=== PATIENT | male | born 1965 | race African-American/Black ===

== ENCOUNTER → 2020-08-28 12:46 | Outpatient (BNVA) | payer OTHER, SELFPAY | PROVIDERS: PCP Internal Medicine; Referring Provider Internal Medicine; Visit Provider Urology | DX: C61 Malignant neoplasm of prostate (principal); R68.82 Decreased libido; N52.9 Male erectile dysfunction, unspecified | CPT/HCPCS: 99213; 99214 ==

== ENCOUNTER 2020-09-18 06:50 | Day surgery (SDC) | payer OTHER, SELFPAY ==
--- NOTE | 2020-09-17 11:59 | HO.ANESPROP2 ---
Documented by User: Tara Robert 09/17/20 12:04 HPI - Anesthesia Eval Consult details Narrative: 54yo M for Colonoscopy PMFSH Past Medical History Medical History (Updated 09/18/20 @ 08:16 by Cassie Leal) Abnormal liver function Anemia History of prostate cancer Hx of hydrocele Hx of testicular mass Increased BMI (body mass index) Surgical History Surgical History History of carpal tunnel surgery of right wrist Hx of colonoscopy Hx of shoulder surgery Social History Social History Smoking Status: Never smoker Second Hand Smoke Exposure: No Use of substances other than those prescribed or required for medical reasons: No Advance Directives: No Advance Directives Information Provided: No Recently lost weight without trying: No Meds Allergies Allergy/AdvReac Type Severity Reaction Status Date / Time Sulfa (Sulfonamide Allergy Unknown swollen Verified 05/13/20 00:00 Antibiotics) testicle sulfamethoxazole Allergy Unknown SWELLING Unverified 08/14/20 15:31 [From BACTRIM] trimethoprim [From BACTRIM] Allergy Unknown SWELLING Unverified 08/14/20 15:31 Home Medications Medication Instructions Recorded Confirmed Type amitriptyline 1 tab PO BEDTIME 09/16/20 09/16/20 History atorvastatin 1 tab PO DAILY 09/16/20 09/16/20 History benzonatate 1 cap PO TID PRN 09/16/20 09/16/20 History bisacodyl 4 tab PO DAILY PRN 09/16/20 History cholecalciferol (vitamin D3) 1 tab PO BID 09/16/20 09/16/20 History [Vitamin D3] duloxetine mg PO 09/16/20 History meclizine 1 tab PO Q8H PRN 09/16/20 09/16/20 History pregabalin PO 09/16/20 History sertraline 1 tab PO DAILY 09/16/20 09/16/20 History tamsulosin 1 cap PO DAILY 09/16/20 09/16/20 History Exam Exam Date and Time: September 17, 2020 1159 Pertinent Lab Results Pertinent Lab Results: Laboratory Tests 08/09/20 08/09/20 20:04 20:04 WBC 4.1 L Hgb 11.6 L Hct 35.5 L Plt Count 178 Sodium 139 Potassium 4.0 Chloride 105 BUN 18 H Creatinine 1.18 Narrative Narrative: CTA 2017: Nml Coronaries, nml EF ECHO 2017: Nml study Assessment and Plan Assessment Anesthesia Assessment: Chart Reviewed Documented by User: Cassie Leal 09/18/20 08:29 PMFSH Past Medical History Medical History (Updated 09/18/20 @ 08:16 by Cassie Leal) Abnormal liver function Anemia History of prostate cancer Hx of hydrocele Hx of testicular mass Increased BMI (body mass index) Family History Family history of problems with anesthesia: No Surgical History Surgical History History of carpal tunnel surgery of right wrist Hx of colonoscopy Hx of shoulder surgery History of Problems with Anesthesia: No Social History Social History Smoking Status: Never smoker Second Hand Smoke Exposure: No Use of substances other than those prescribed or required for medical reasons: No Advance Directives: No Advance Directives Information Provided: No Recently lost weight without trying: No Meds Allergies Allergy/AdvReac Type Severity Reaction Status Date / Time Sulfa (Sulfonamide Allergy Unknown swollen Verified 05/13/20 00:00 Antibiotics) testicle sulfamethoxazole Allergy Unknown SWELLING Unverified 08/14/20 15:31 [From BACTRIM] trimethoprim [From BACTRIM] Allergy Unknown SWELLING Unverified 08/14/20 15:31 Home Medications Medication Instructions Recorded Confirmed Type amitriptyline 1 tab PO BEDTIME 09/16/20 09/16/20 History atorvastatin 1 tab PO DAILY 09/16/20 09/16/20 History benzonatate 1 cap PO TID PRN 09/16/20 09/16/20 History bisacodyl 4 tab PO DAILY PRN 09/16/20 History cholecalciferol (vitamin D3) 1 tab PO BID 09/16/20 09/16/20 History [Vitamin D3] duloxetine mg PO 09/16/20 History meclizine 1 tab PO Q8H PRN 09/16/20 09/16/20 History pregabalin PO 09/16/20 History sertraline 1 tab PO DAILY 09/16/20 09/16/20 History tamsulosin 1 cap PO DAILY 09/16/20 09/16/20 History Exam Height,Weight and Vital Signs: Vital Signs Temp Pulse Resp BP Pulse Ox 09/18/20 07:33 96.2 F L 52 16 128/72 98 Airway Mallampati Class: II TM Dist: >3cm Neck ROM: Full Heart: RRR ?systolic murmur Lungs: CTAB Assessment and Plan Assessment Anesthesia Assessment: Anesthesia Plan Discussed and Chart Reviewed Final Anesthetic Review NPO: Yes ASA Class: II Final Preanesthetic Review: No Changes in Pt Med Stat, Meds/Allgs Chart Reviewed, Consent Obtained/Reviewed and Anes Risks/Benef Reviewed Patient Risk: Low Procedure Risk: Low Anesthetic Plan Anesthetic Plan: MAC: Disposition: Standard PACU
[2020-09-18 07:18] VITALS: BMI 33.2
[2020-09-18 07:33] VITALS: BP 128/72; PULSE 52; RESP 16; TEMP 35.7; O2SAT 98
[2020-09-18] MEDS: Lactated Ringers 1,000 ML 100 ML IVCONT (07:47)
--- NOTE | 2020-09-18 08:22 | MHC.SHP ---
Pre-Procedural Eval Section B Chief Complaint: Polyp of Colon Relevant Family History (Specify if Yes): No Relevant Social History: None Present Medications: see Short Stay Collaborative assessment Medical History: Significant History (BPH, gilbert syndrome) History of Previous Operations: Relevant previous surgery/procedure and date(s) (prostate surgery) Allergies: Allergies Allergy/AdvReac Type Severity Reaction Status Date / Time Sulfa (Sulfonamide Allergy Unknown swollen Verified 05/13/20 00:00 Antibiotics) testicle sulfamethoxazole Allergy Unknown SWELLING Unverified 08/14/20 15:31 [From BACTRIM] trimethoprim [From BACTRIM] Allergy Unknown SWELLING Unverified 08/14/20 15:31 Review of Systems Sugical H&P ROS: Negative: Constitution, Cardiovascular, Respiratory, Neurological, Psychiatric, Hem-Onc, Allergic/Immunologic, Gastrointestinal, Genitourinary, Musculoskeletal, Integumentary, Endocrine and Eyes/Ears/Nose/Throat Exam Surgical H&P Exam: Normal: HEENT, Normal: Heart, Normal: Lungs, Normal: Extremities, Normal: Abdomen, Normal: Skin and Normal: Neurological Plan Diagnosis/Plan: Unchanged Patient has been examined and remains a candidate for the planned procedure
--- NOTE | 2020-09-18 08:23 | PM.OP ---
Brief Operative Note Date of procedure: 09/18/20 Pre-op diagnosis: hx of colon polyps Post-op diagnosis: same Procedure: colonoscopy-see op note Surgeon: Je Gates MD Anesthesia: MAC Estimated blood loss (mL): 0 Condition: stable Disposition: PACU
--- NOTE | 2020-09-18 08:23 | W.PM.OPN ---
Operative Note Operative Note Narrative: Operative Information Procedure Description: Colonoscopy COLONOSCOPY Instrument: Olympus variable stiffness pediatric scope 190L Colonoscopy Monitoring: Vital signs and clinical assessment, continuous EKG monitoring, Pulse oximetry, Carbon Dioxide monitoring and blood pressure monitoring were done throughout the procedure. Colon withdrawal time was 13 minutes. Procedure: The patient was placed in the left lateral decubitis position and pre-procedure medications were administered. After a digital rectal examination of the ano-rectum, the video colonoscope was inserted into the rectum and advanced through the colon to the cecum/TI. The colonoscope was slowly withdrawn in a retrograde panoramic fashion and the colon mucosa was carefully examined including a retroflexed view of the rectum. Findings and interventions are described below. Procedure Difficulty:easy Findings: Terminal Ileum-normal Cecum:normal Ascending Colon: normal Transverse Colon -normal Descending Colon:normal Sigmoid Colon: x 2 sesssile polyps measuring 8-10 mm removed with cold snare and retrieved Rectum: Retroflexion with small internal hemorrhoids, grade I Anorectum - normal Colon preparation: [place] Bowel Preparation Scale Right colon; 3 Transverse colon: 3 Left colon; 1 (0 = Unprepared colon segment with mucosa not seen due to solid stool that cannot be cleared. 1 = Portion of mucosa of the colon segment seen, but other areas of the colon segment not well seen due to staining, residual stool and/or opaque liquid. 2 = Minor amount of residual staining, small fragments of stool and/or opaque liquid, but mucosa of colon segment seen well. 3 = Entire mucosa of colon segment seen well with no residual staining, small fragments of stool or opaque liquid) Impression and Post Procedure Diagnosis: colon polyps internal hemorrhoids Plan: High fiber diet leaflet Avoid straining at stool, epsom salts and sitz bath prn, anusol supps or cream prn Repeat Colonoscopy in 5 years or earlier if clincially indicated Above findings were reviewed with the patient and relevant handouts were provided if indicated.
--- NOTE | 2020-09-18 08:28 | P.CONAN_ITS ---
[facility] Past Medical History Medical History (Updated 09/18/20 @ 08:16 by Cassie Leal) Abnormal liver function Anemia History of prostate cancer Hx of hydrocele Hx of testicular mass Increased BMI (body mass index) Surgical History Surgical History History of carpal tunnel surgery of right wrist Hx of colonoscopy Hx of shoulder surgery Social History Social History Smoking Status: Never smoker Second Hand Smoke Exposure: No Use of substances other than those prescribed or required for medical reasons: No Advance Directives: No Advance Directives Information Provided: No Recently lost weight without trying: No Meds Allergies Allergy/AdvReac Type Severity Reaction Status Date / Time Sulfa (Sulfonamide Allergy Unknown swollen Verified 05/13/20 00:00 Antibiotics) testicle sulfamethoxazole Allergy Unknown SWELLING Unverified 08/14/20 15:31 [From BACTRIM] trimethoprim [From BACTRIM] Allergy Unknown SWELLING Unverified 08/14/20 15:31 Home Medications Medication Instructions Recorded Confirmed Type amitriptyline 1 tab PO BEDTIME 09/16/20 09/16/20 History atorvastatin 1 tab PO DAILY 09/16/20 09/16/20 History benzonatate 1 cap PO TID PRN 09/16/20 09/16/20 History bisacodyl 4 tab PO DAILY PRN 09/16/20 History cholecalciferol (vitamin D3) 1 tab PO BID 09/16/20 09/16/20 History [Vitamin D3] duloxetine mg PO 09/16/20 History meclizine 1 tab PO Q8H PRN 09/16/20 09/16/20 History pregabalin PO 09/16/20 History sertraline 1 tab PO DAILY 09/16/20 09/16/20 History tamsulosin 1 cap PO DAILY 09/16/20 09/16/20 History Exam Exam Date and Time: September 18, 2020 0828 Height,Weight and Vital Signs: Height 5 ft 9 in Weight 102.058 kg Last Vital Signs Temp 96.2 F L 09/18/20 07:33 Pulse 52 09/18/20 07:33 Resp 16 09/18/20 07:33 BP 128/72 09/18/20 07:33 Pulse Ox 98 09/18/20 07:33 Assessment and Plan Final Anesthetic Review Final Preanesthetic Review: No Changes in Pt Med Stat, Meds/Allgs Chart Reviewed, Consent Obtained/Reviewed and Anes Risks/Benef Reviewed Patient Risk: Low Procedure Risk: Intermediate Anesthetic Plan Anesthetic Plan: MAC: Disposition: Standard PACU
[2020-09-18 09:08] VITALS: BP 110/49; PULSE 60; RESP 16; TEMP 37.6; O2SAT 96
[2020-09-18 09:24] VITALS: BP 117/67; PULSE 56; RESP 16; TEMP 36.6; O2SAT 95
--- NOTE | 2020-09-18 10:17 | PC.NURSE ---
[facility] [id number] used for interpretation
== END 2020-09-18 10:17 | disposition home or self-care (01) ==
PROVIDERS: Internal Medicine Gastroenterology; Visit Provider Anesthesiology
PROC: 0DJD8ZZ Inspection of Lower Intestinal Tract, Via Natural or Artificial Opening Endoscopic (ICD-10-PCS; CPT 45378; principal; 2020-09-18 08:10)
DX: Z12.11 Encounter for screening for malignant neoplasm of colon (principal); D12.5 Benign neoplasm of sigmoid colon; K64.8 Other hemorrhoids; K64.0 First degree hemorrhoids; D64.9 Anemia, unspecified; E80.4 Gilbert syndrome; Z79.899 Other long term (current) drug therapy; Z85.46 Personal history of malignant neoplasm of prostate; Z88.2 Allergy status to sulfonamides
CPT/HCPCS: 45385; 88305

== ENCOUNTER → 2020-09-29 09:01 | Outpatient (BNVA) | payer OTHER, SELFPAY | PROVIDERS: PCP Internal Medicine; Referring Provider Internal Medicine; Visit Provider Physician Assistant | DX: K64.8 Other hemorrhoids (principal); D12.5 Benign neoplasm of sigmoid colon; Z98.890 Other specified postprocedural states | CPT/HCPCS: 99212 ==

== ENCOUNTER 2020-10-08 17:10 | Outpatient (REF) | payer OTHER, SELFPAY | END 2020-10-08 17:11 | disposition home or self-care (01) | LOC: HO.LAB 17:10 | PROVIDERS: Visit Provider Internal Medicine | DX: Z20.828 Contact with and (suspected) exposure to other viral communicable diseases (principal) | CPT/HCPCS: C9803; U0003 ==

== ENCOUNTER 2020-11-24 11:09 | Outpatient (REF) | payer OTHER, SELFPAY ==
[2020-11-24 12:47] LABS: Prostate Specific Antigen < 0.05 ng/mL (<0.05-4.0)
== END 2020-11-24 11:10 | disposition home or self-care (01) ==
LOC: HO.LAB 11:09
PROVIDERS: Visit Provider Urology
DX: C61 Malignant neoplasm of prostate (principal)
CPT/HCPCS: 84153

== ENCOUNTER → 2020-12-01 13:04 | Outpatient (BNVA) | payer OTHER, SELFPAY | PROVIDERS: Visit Provider Urology | DX: C61 Malignant neoplasm of prostate (principal) | CPT/HCPCS: 51798; 81002; 99212 ==

== ENCOUNTER → 2021-02-19 13:29 | Outpatient (BNVA) | payer OTHER, SELFPAY | PROVIDERS: Visit Provider Urology | DX: C61 Malignant neoplasm of prostate (principal); N40.1 Benign prostatic hyperplasia with lower urinary tract symptoms; N13.8 Other obstructive and reflux uropathy | CPT/HCPCS: 96402; 99212; J9217 ==

== ENCOUNTER 2025-09-11 15:06 | Emergency (ER) | payer OTHER, SELFPAY ==
--- NOTE | ~2025-09-11 | XR_ITS ---
EXAMINATION: XR CHEST CLINICAL INFORMATION: chest congestion productive cough COMPARISON: Previous chest x-ray July 2020 TECHNIQUE: 2 views of the chest were obtained. FINDINGS: Increased markings in the left upper lung/perihilar region. Question 1 cm nodular density overlying the left anterior fourth rib and posterior seventh rib versus summation of bony and vascular structures. Lungs are otherwise clear. Cardiac and mediastinal contours are stable. No pleural effusion or pneumothorax. Degenerative changes of the spine. XR/XR chest 2V IMPRESSION: Question small infiltrate in the left perihilar region and 1 cm nodular density versus summation of bone and vascular structures. Recommend follow-up chest x-ray following treatment. Electronically signed by: Andreina Sandoval MD 09/11/2025 04:17 PM EDT
[2025-09-11 15:12] VITALS: BP 127/70; PULSE 64; RESP 20; TEMP 36.8; O2SAT 100; BMI 37.0
--- NOTE | 2025-09-11 15:16 | ECG_ITS ---
Test Reason : chest discomfort Blood Pressure : */* mmHG Vent. Rate : 59 BPM Atrial Rate : 59 BPM P-R Int : 192 ms QRS Dur : 78 ms QT Int : 404 ms P-R-T Axes : 16 -21 -4 degrees QTcB Int : 399 ms Sinus bradycardia Minimal voltage criteria for LVH, may be normal variant ( R in aVL ) Nonspecific ST abnormality Abnormal ECG When compared with ECG of 10-Sep-2017 20:10, No significant change was found Referred By: Krystina Berumen Electronically Signed By: Paulino Angel
--- NOTE | 2025-09-11 15:17 | ED.URI ---
HPI - URI/Sore Throat General Chief Complaint: Upper Respiratory Symptoms Stated Complaint: chest congestion Time Seen by Provider: 09/11/25 21:04 Source: patient and bottom wheeler Mode of arrival: ambulatory Limitations: language barrier History of Present Illness ED Provider: HPI Narrative: 59-year-old male presenting with productive cough and chest congestion, he is visiting from a [place] reports that his has had similar symptoms, symptoms started proximally for 5 days ago, no chest pain no pleurisy no hemoptysis. Related Data Home Medications ?Medication ?Instructions ?Recorded ?Confirmed amitriptyline 50 mg tablet 1 tab PO BEDTIME 09/16/20 12/01/20 atorvastatin 20 mg tablet 1 tab PO DAILY 09/16/20 12/01/20 benzonatate 200 mg capsule 1 cap PO TID PRN cough 09/16/20 12/01/20 cholecalciferol (vitamin D3) 10 1 tab PO BID 09/16/20 12/01/20 mcg (400 unit) tablet (Vitamin D3) duloxetine 60 mg capsule,delayed mg PO 09/16/20 12/01/20 release meclizine 25 mg tablet 1 tab PO Q8H PRN dizziness 09/16/20 12/01/20 pregabalin 300 mg capsule PO 09/16/20 12/01/20 sertraline 100 mg tablet 1 tab PO DAILY 09/16/20 12/01/20 Previous Rx's ?Medication ?Instructions ?Recorded leuprolide acetate (6 month) 45 mg 45 mg subcut [id number] #1 ea 08/28/20 (6 month) subcutaneous syringe ([employer]) hydrocortisone 2.5 % topical cream 1 applic MD BEDTIME PRN 09/29/20 with perineal applicator hemorrhoids #30 grams (Anusol-HC) hydrocortisone 2.5 % topical cream 1 applic MD BID PRN hemorrhoids 09/29/20 with perineal applicator #30 grams (Proctozone-HC) tamsulosin 0.4 mg capsule 0.4 mg PO DAILY #30 caps 01/13/21 benzonatate 200 mg capsule 200 mg PO TID PRN cough #14 caps 09/11/25 doxycycline monohydrate 100 mg 100 mg PO BID 7 days #14 caps 09/11/25 capsule Allergies Allergy/AdvReac Type Severity Reaction Status Date / Time Sulfa (Sulfonamide Allergy Unknown swollen Verified 09/11/25 15:15 Antibiotics) testicle sulfamethoxazole (From Allergy Unknown SWELLING Verified 09/11/25 15:15 BACTRIM) trimethoprim (From BACTRIM) Allergy Unknown SWELLING Verified 09/11/25 15:15 Review of Systems Constitutional: Constitutional: Reports as per HPI [facility] Past Medical History Medical History Abnormal liver function Anemia BPH (benign prostatic hyperplasia) History of nocturia History of prostate cancer Hx of hydrocele Hx of testicular mass Increased BMI (body mass index) Surgical History History of carpal tunnel surgery of right wrist Hx of colonoscopy Hx of shoulder surgery Family History Family History Father History of heart attack Mother Alive and well Social History Social History Alcohol intake: never Second Hand Smoke Exposure: No Advance Directives: No Advance Directives Information Provided: No Physical Exam Vital Signs: Vital Signs: Last Vital Signs Temp 98.2 F 09/11/25 15:12 Pulse 64 09/11/25 15:12 Resp 20 09/11/25 15:12 BP 127/70 09/11/25 15:12 Pulse Ox 100 09/11/25 15:12 O2 Del Method Room Air 09/11/25 15:12 BMI result Body Mass Index 37.0 Const: Other: General: ?Appears of stated age ? ?CV: RRR, no obvious murmurs appreciated ? ?Resp: ?No wheezing rales rhonchi no stridor moving air well ? ?MSK: FROM, strength 5/5 all extremities ? Skin: Warm, dry, intact, ? ?Neuro: ?Alert and oriented x3, moving upper and lower extremities symmetrically, no obvious facial asymmetry noted, cranial nerves 2-12 intact Course Course Course Narrative: This is a Rapid Medical Examination (RME) performed by Millie Berumen PA-C in triage. Full HPI, ROS, assessment and treatment plan per primary provider in the Main ED. Hx: 59 yo M here for eval of chest congestion/discomfort, productive cough x5 days. reports symptoms began after driving here from [place]. ill w/ similar symptoms. no hemoptysis. Plan: labs, ekg, cxr, viral swabs Medical Decision Making Medical Decision Making [facility] Narrative: 9:35 PM 09/11/2025 (Dr. Issac Arshad): Consideration for workup as below, his chest x-ray is consistent with pneumonia as well as his symptoms support that, he is not septic however, no leukocytosis, no tachycardia no hypoxia, did not feel further workup for PE is indicated based on his presentation and symptoms. We will initiate antibiotics, he is nonsmoker. Differential Diagnosis Differential Diagnoses: The differential diagnosis associated with the presentation includes (CHF, COPD exacerbation, pneumonia, pneumothorax, ACS, PE,) Admission/Observation Consideration of admission/observation: Escalation of care including admission/observation considered Lab Data [facility] Lab Attestation statement: I reviewed the patient's lab results. 09/11/25 15:27 09/11/25 15:27 Labs: Lab Results 09/11/25 09/11/25 Range/Units 15:27 15:28 WBC 5.6 (4.8-10.8) X10*3/uL RBC 4.58 L (4.60-5.80) X10*6/uL Hgb 12.0 L (14.0-18.0) g/dl Hct 36.8 L (42.0-52.0) % MCV 80.3 (80.0-98.0) fL MCH 26.2 L (27.0-33.0) pg MCHC 32.6 (31.0-36.0) g/dl RDW 14.0 (11.0-16.0) % Plt Count 150 L (160-400) X10*3/uL MPV 12.4 (9.4-12.4) fL Immature Gran % (Auto) 0.5 H (0.0-0.4) % Neut % (Auto) 58.2 (45-73) % Lymph % (Auto) 26.5 (20-40) % Tift % (Auto) 11.4 H (2-11) % Eos % (Auto) 3.0 (0-4) % Baso % (Auto) 0.4 (0-2) % Lymph # (Auto) 1.5 (1.2-4.9) X10*3/uL Tift # (Auto) 0.6 (0.1-1.2) X10*3/uL Eos # (Auto) 0.2 (0.0-0.4) X10*3/uL Baso # (Auto) 0.0 (0.0-0.2) X10*3/uL Abs Immat Gran (auto) 0.03 (0.00-0.03) X10*3/uL Absolute Neuts (auto) 3.3 (2.0-8.3) x10*3/uL Absolute Nucleated RBC 0.000 (0.0-0.012) X10*3/uL Nucleated RBC % (auto) 0.0 (0.0-0.2) /100WBC Sodium 143 (135-145) mmol/L Potassium 4.1 (3.3-5.1) mmol/L Chloride 111 H (96-108) mmol/L Carbon Dioxide 26 (22-29) mmol/L Anion Gap 10 L (12-20) BUN 13 (9-16) mg/dL Creatinine 1.03 (0.5-1.4) mg/dL Estim Creat Clear Calc 93.6 Estimated GFR > 60 Random Glucose 110 (60-115) mg/dL Calcium 9.0 (8.4-10.2) mg/dL Magnesium 1.9 (1.6-2.6) mg/dL Total Bilirubin 0.9 (0.0-1.0) mg/dL AST 32 (5-37) U/L ALT 35 (0-40) U/L Alkaline Phosphatase 100 (39-117) U/L Troponin I High Sens 7.7 (<3.5-35.0) ng/L Total Protein 6.8 (6.5-8.0) g/dL Albumin 4.0 (3.5-5.0) g/dL COVID-19 (JOSELITO) Negative (Negative) COVID-19 Clin Com See Note Influenza Type A (SEBASTIAN) Negative (Negative) Influenza Type B (SEBASTIAN) Negative (Negative) Influenza A & B Note See Note Independent Interpretation I performed an independent interpretation of an: EKG (59 beats per minute otherwise normal ECG without dysrhythmia, AV kp blocks or ST-T changes to suspect underlying ACS, my independent interpretation) and Plain X-Ray (I do not appreciate obvious consolidations, there was no evidence for vascular congestion, pneumothorax) Radiology Impression Discussion of test interpretation with radiology: I have reviewed the radiologist's reading. ( XR/XR chest 2V IMPRESSION: Question small infiltrate in the left perihilar region and 1 cm nodular density versus summation of bone and vascular structures. Recommend follow-up chest x-ray following treatment) Tests considered The following testing was considered but not selected: CT angiography of the chest Prescription Management I considered prescription management with: Antibiotic Discharge Plan Discharge Clinical Impression: Community acquired pneumonia Patient Disposition: Home, Self-Care Instructions: Community Acquired Pneumonia (ED) Additional Instructions: As discussed your chest x-ray is concerning for small infiltrate or pneumonia in the left lung, antibiotics started in the ER 1st dose, pickle sorter antibiotics and medication for cough at your pharmacy tomorrow, follow up with the PCP worsening issues concerns come back to the ER, the rest of the workup including viral swab, blood work EKG cardiac enzymes have been reassuring Prescriptions: New doxycycline monohydrate 100 mg capsule 100 mg PO BID 7 Days Qty: 14 0RF benzonatate 200 mg capsule 200 mg PO TID PRN (Reason: cough) Qty: 14 0RF No Action tamsulosin 0.4 mg capsule 0.4 mg PO DAILY Qty: 30 6RF atorvastatin 20 mg tablet 1 tab PO DAILY benzonatate 200 mg capsule 1 cap PO TID PRN (Reason: cough) sertraline 100 mg tablet 1 tab PO DAILY amitriptyline 50 mg tablet 1 tab PO BEDTIME meclizine 25 mg tablet 1 tab PO Q8H PRN (Reason: dizziness) cholecalciferol (vitamin D3) [Vitamin D3] 10 mcg (400 unit) tablet 1 tab PO BID duloxetine 60 mg capsule,delayed release(DR/EC) PO pregabalin 300 mg capsule PO Eligard (6 month) 45 mg syringe 45 mg subcut [id number] Qty: 1 0RF hydrocortisone [Proctozone-HC] 2.5 % cream with perineal applicator 1 applic MD BID PRN (Reason: hemorrhoids) Qty: 30 3RF Rx Instructions: apply MD BID prn hydrocortisone [Anusol-HC] 2.5 % cream with perineal applicator 1 applic MD BEDTIME PRN (Reason: hemorrhoids) Qty: 30 0RF Print Language: Bulgarian
[2025-09-11 15:33] LABS: MANUAL DIFF FLAG NO
[2025-09-11 15:34] LABS: Hematocrit 36.8 % (42.0-52.0); Hemoglobin 12.0 g/dl (14.0-18.0); Imm Gran Abs Auto 0.03 X10*3/uL (0.00-0.03); Imm Gran Pct Auto 0.5 % (0.0-0.4); Lymphocytes Absolute Auto 1.5 X10*3/uL (1.2-4.9); Mean Corpuscular HGB Conc 32.6 g/dl (31.0-36.0); Mean Corpuscular Hemoglobin 26.2 pg (27.0-33.0); Mean Corpuscular Volume 80.3 fL (80.0-98.0); NRBC Abs Auto 0.000 X10*3/uL (0.0-0.012); NRBC Pct Auto 0.0 /100WBC (0.0-0.2); Platelet Count 150 X10*3/uL (160-400); Red Blood Count 4.58 X10*6/uL (4.60-5.80); White Blood Count 5.6 X10*3/uL (4.8-10.8)
[2025-09-11 15:53] LABS: COVID-19 Test Negative (Negative); IDNOW Serial# 55D5AD1C; IDNOW Serial# 58CA691E; Influenza B2 Negative (Negative)
[2025-09-11 16:00] LABS: Alanine Aminotransferase 35 U/L (0-40); Albumin Level 4.0 g/dL (3.5-5.0); Alkaline Phosphatase 100 U/L (39-117); Anion Gap 10 (12-20); Aspartate Amino Transferase 32 U/L (5-37); Blood Urea Nitrogen 13 mg/dL (9-16); Calcium 9.0 mg/dL (8.4-10.2); Carbon Dioxide 26 mmol/L (22-29); Chloride 111 mmol/L (96-108); Creatinine Clr Calc Pharmacy 93.6; Estimated Glomerular Filt Rate > 60; Magnesium 1.9 mg/dL (1.6-2.6); Potassium 4.1 mmol/L (3.3-5.1); Sodium 143 mmol/L (135-145); Total Protein 6.8 g/dL (6.5-8.0)
[2025-09-11 16:02] LABS: Troponin-I High Sensitivity 7.7 ng/L (<3.5-35.0)
--- OUTSIDE RECORDS SUMMARY | 2025-09-11 20:38 | XMS_ITS | Clinical Summary ---
Author Organization [employer] Address [address] [place] [address] Care Team Providers Care Scallop Shucker Name Role Phone Unavailable Primary Care Provider Unavailabl e Social History Tobacco Use Types Packs/Day Years Used Date Smoking Tobacco: Never Assessed Sex and Gender Information Value Date Recorded Sex Assigned at Male 09/27/2022 10:16 AM EDT Legal Sex Male 10:16 AM EDT Gender Identity Male 09/27/2022 10:16 AM EDT Sexual Orientation Straight 09/27/2022 10 :16 AM EDT Last Filed Vital Signs Vital Sign Reading Time Taken Comments Blood Pressure 118/78 11/22/2019 12:12 AM EST Pulse 66 11/22/2019 12:12 AM EST Temperature - - Respiratory Rate - - Oxygen Saturation - - Inhaled Oxygen Concentration - - Weight 106 kg (233 lb 9.6 oz) 11/22/2019 12:12 A M EST Height 175.3 cm (5' 9 ) 11/22/2019 12:12 AM EST Body Mass Index 34.5 11/22/2019 12:12 AM EST Plan of Treatment Health Maintenance Due Date Last Done Comments CT Colonography 1963 Colonoscopy 1963 Colorectal Cancer Screening 1963 Depression Screening 1963 FIT DNA/Cologuard 1963 FIT 1963 FOBT 1963 Lipid Panel 1963 Sigmoidoscopy 1963 Disability Screening 1963 Alcohol/Substance Use Screening 1975 Tobacco Screening 1975 Pneumococcal Vaccine: 50+ Years (1 of 1 - PCV) 2013 Zoster Vaccines (1 of 2) 2013 DTaP/Tdap/Td Vaccines (2 - T d or Tdap) 12/06/2022 12/06/2012, 12/29/2005 COVID-19 Vaccine ( - 2023-2 5 season) 2025 Influenza Vaccine (#1) 2025 09/22/2020 RSV Patients and Patients Aged 60 years or older (1 - 1-dose 75+ series) 2038 Hepatitis B Vaccines Completed 05/14/2008, 11/24/2007, 10/03/2007 Hepatitis A Vaccines Aged Out 10/27/2012 No long er eligible based on patient's age to complete this topic HIB Vaccines Aged Out No longer eligi ble based on patient's age to complete this topic HPV Vaccines Aged Out No longer eligi ble based on patient's age to complete this topic IPV Vaccines Aged Out No longer eligi ble based on patient's age to complete this topic Meningococcal B Vaccine Aged Out No l onger eligible based on patient's age to complete this topic Meningococcal Vaccine Aged Out No syd mickie eligible based on patient's age to complete this topic RSV under 20 months Aged Out No longe r eligible based on patient's age to complete this topic Rotavirus Vaccines Aged Out No longer eligible based on patient's age to complete this topic
--- OUTSIDE RECORDS SUMMARY | 2025-09-11 20:38 | XMS_ITS | Encounter Summary ---
Author Organization [employer] Address [address] [place] [address] Care Team Providers Care Esl Tutor Name Role Phone Joie Case Primary Care Provider [phone] Encounter Details Date Type Department Care Team (Latest Contact Info) Description 06/27/2019 Abstract C CONVERSIONS Dental, Provider, DDS Social History Tobacco Use Types Packs/Day Years Used Date Smoking Tobacco: Never Assessed Sex and Gender Information Value Date Recorded Sex Assigned at Male 09/27/2022 10:16 AM EDT Legal Sex Male 10:16 AM EDT Gender Identity Male 09/27/2022 10:16 AM EDT Sexual Orientation Straight 09/27/2022 10 :16 AM EDT documented as of this encounter Plan of Treatment Not on file documented as of this encounter Visit Diagnoses Not on filedocumented in this encounter Care Teams Esl Tutor Relationship Specialty Start Date End Date Joie Case FNP [address] [place] [address] PCP - General Family Medicine 05/04/22 11/02/23 documented as of this encounter
[2025-09-11 22:04] VITALS: BP 130/76; PULSE 55; RESP 17; TEMP 36.8; O2SAT 96
== END 2025-09-11 22:05 | disposition home or self-care (01) ==
PROVIDERS: Physician Assistant Medical; Emergency Provider Emergency Medicine
DX: J18.9 Pneumonia, unspecified organism (principal); R07.89 Other chest pain; R00.1 Bradycardia, unspecified; R09.89 Other specified symptoms and signs involving the circulatory and respiratory systems; R05.9 Cough, unspecified; R94.31 Abnormal electrocardiogram [ECG] [EKG]; Z79.899 Other long term (current) drug therapy; Z11.52 Encounter for screening for COVID-19
CPT/HCPCS: 71046; 80053; 83735; 84484; 85025; 87502; 87635; 93005; 99283

== ENCOUNTER → 2025-09-11 15:16 | Outpatient (BNV) | payer OTHER, SELFPAY | PROVIDERS: Visit Provider Radiology Diagnostic Radiology | DX: R05.9 Cough, unspecified (principal); R09.89 Other specified symptoms and signs involving the circulatory and respiratory systems | CPT/HCPCS: 71046 ==

== ENCOUNTER → 2025-09-11 15:16 | Outpatient (BNV) | payer OTHER, SELFPAY | PROVIDERS: Emergency Provider Emergency Medicine; Visit Provider Internal Medicine Cardiovascular Disease | DX: R00.1 Bradycardia, unspecified (principal) | CPT/HCPCS: 93010 ==